=== PATIENT | female | born 1980 | race Caucasian/White ===

== ENCOUNTER 2022-05-13 14:01 | Day surgery (SDC) | payer OTHER ==
[2022-05-13] MEDS ORDERED: Depo-Medrol 40 MG/ML IM ONE (14:02)
[2022-05-13] MEDS ORDERED: Sodium Chloride 0.9(Preservative Free) 10 ML IJ ONE (14:02)
[2022-05-13] MEDS ORDERED: LIDOCAINE HCL 1% 50 MG/5 ML VL PF IJ ONE (14:02)
[2022-05-13] MEDS ORDERED: Lactated Ringers 1,000 ML IV ONE (17:33)
--- NOTE | 2022-05-13 19:22 | XRAY ---
Indication: Right L4-S1 transforaminal OLIVERIO. Intraoperative fluoroscopy provided for 36 seconds. 7 digital spot image submitted for interpretation demonstrates posterior needle tips projecting over the right L4 and L5 nerve roots. Small amount of contrast injected for needle tip placement. Correlate with intraoperative findings/report.
--- NOTE | 2022-05-14 08:33 | XRAY ---
36 seconds of fluoroscopy was used in surgery for a right L4-S1 transforaminal OLIVERIO.
== END 2022-05-13 17:30 | disposition home or self-care (01) ==
LOC: SDC-PAIN 14:01
PROVIDERS: ATTEND Psychiatry & Neurology Pain Medicine
DX: M54.16 Radiculopathy, lumbar region (principal); Z79.899 Other long term (current) drug therapy
CPT/HCPCS: 64483; 64484; 72100; 77003; 81025; J1030; J2001; Q9966

== ENCOUNTER 2022-06-10 13:53 | Day surgery (SDC) | payer OTHER ==
[2022-06-10] MEDS ORDERED: Lactated Ringers 1,000 ML IV ONE (13:54)
[2022-06-10] MEDS ORDERED: Sodium Chloride 0.9(Preservative Free) 10 ML IJ ONE (13:54)
[2022-06-10] MEDS ORDERED: LIDOCAINE HCL 1% 50 MG/5 ML VL PF IJ ONE (13:54)
[2022-06-10] MEDS ORDERED: Depo-Medrol 40 MG/ML IM ONE (13:54)
--- NOTE | 2022-06-10 16:29 | XRAY ---
Indication: Right L4-S1 transforaminal OLIVERIO. Intraoperative fluoroscopy provided for 49 seconds. 8 digital spot image submitted for interpretation demonstrates posterior needle tips projecting over the expected right L4 and L5 nerve roots. Small amount of contrast injected for needle tip placement. Correlate with intraoperative findings/report.
--- NOTE | 2022-06-10 16:42 | XRAY ---
49 seconds fluoroscopy time in surgery for right L4-S1 transforaminal OLIVERIO.
== END 2022-06-10 16:17 | disposition home or self-care (01) ==
LOC: SDC-PAIN 13:53
PROVIDERS: ATTEND Psychiatry & Neurology Pain Medicine
DX: M54.16 Radiculopathy, lumbar region (principal); Z79.899 Other long term (current) drug therapy
CPT/HCPCS: 64483; 64484; 72100; 77003; 81025; J1030; J2001; Q9966

== ENCOUNTER 2022-07-08 13:25 | Day surgery (SDC) | payer OTHER ==
[2022-07-08] MEDS ORDERED: LIDOCAINE HCL 1% 50 MG/5 ML VL PF IJ ONE (13:26)
[2022-07-08] MEDS ORDERED: Decadron 4 MG INJ IV ONE (13:26)
--- NOTE | 2022-07-08 19:13 | XRAY ---
Indication: Right piriformis injection. Intraoperative fluoroscopy provided for 17 seconds. Single digital spot image submitted for interpretation demonstrates posterior needle tip projecting over the expected right piriformis muscle. Small amount of contrast injected for needle tip placement. Correlate with intraoperative findings/report.
--- NOTE | 2022-07-09 09:00 | XRAY ---
17 seconds of fluoroscopy was used in surgery for a right piriformis injection.
== END 2022-07-08 16:40 | disposition home or self-care (01) ==
LOC: SDC-PAIN 13:25
PROVIDERS: ATTEND Psychiatry & Neurology Pain Medicine
DX: M79.18 Myalgia, other site (principal); Z79.899 Other long term (current) drug therapy
CPT/HCPCS: 20552; 72170; 77002; 81025; J1100; J2001; Q9966

== ENCOUNTER 2022-08-05 14:41 | Day surgery (SDC) | payer OTHER ==
[2022-08-05] MEDS ORDERED: Depo-Medrol 40 MG/ML IM ONE (14:42)
[2022-08-05] MEDS ORDERED: BUPIVACAINE 0.5% VIAL IJ ONE (14:42)
[2022-08-05] MEDS ORDERED: LIDOCAINE HCL 1% 50 MG/5 ML VL PF IJ ONE (14:42)
[2022-08-05 15:54] LABS: HCG URINE TEST NEGATIVE (NEGATIVE)
--- NOTE | 2022-08-06 08:41 | XRAY ---
Indication: Right knee injection. Intraoperative fluoroscopy provided for 33 seconds. Single digital spot image submitted for interpretation demonstrates contrast in the right femur intercondylar notch. Correlate with intraoperative findings/report.
--- NOTE | 2022-08-06 09:56 | XRAY ---
33 seconds of fluoroscopy was used in surgery for a right intra-articular knee injection.
== END 2022-08-05 17:50 | disposition home or self-care (01) ==
LOC: SDC-PAIN 14:41
PROVIDERS: ATTEND Psychiatry & Neurology Pain Medicine
DX: M17.11 Unilateral primary osteoarthritis, right knee (principal); Z79.899 Other long term (current) drug therapy
CPT/HCPCS: 20610; 36415; 73560; 77002; 81025; J1030; J2001; Q9966

== ENCOUNTER 2022-09-02 13:53 | Day surgery (SDC) | payer OTHER ==
[2022-09-02] MEDS ORDERED: GELSYN-3 IU ONE (13:54)
[2022-09-02] MEDS ORDERED: BUPIVACAINE 0.5% VIAL IJ ONE (13:54)
[2022-09-02] MEDS ORDERED: LIDOCAINE HCL 1% 50 MG/5 ML VL PF IJ ONE (13:54)
[2022-09-02] MEDS ORDERED: Depo-Medrol 40 MG/ML IM ONE (13:54)
[2022-09-02 15:03] LABS: HCG URINE TEST NEGATIVE (NEGATIVE)
--- NOTE | 2022-09-02 18:35 | XRAY ---
Indication: Right knee injection. Intraoperative fluoroscopy provided for 7 seconds. Single digital spot image submitted for interpretation demonstrates needle tip projecting over the right femur intercondylar notch. Small amount of contrast injected for needle tip placement. Correlate with intraoperative findings/report.
--- NOTE | 2022-09-03 17:15 | XRAY ---
7 seconds of fluoroscopy was used in surgery for a right knee intra-articular injection.
== END 2022-09-02 15:40 | disposition home or self-care (01) ==
LOC: SDC-PAIN 13:53
PROVIDERS: ATTEND Psychiatry & Neurology Pain Medicine
DX: M17.11 Unilateral primary osteoarthritis, right knee (principal); M70.51 Other bursitis of knee, right knee; Z79.899 Other long term (current) drug therapy
CPT/HCPCS: 20610; 36415; 73560; 77002; 81025; J1030; J2001; J7328; Q9966

== ENCOUNTER 2022-09-16 14:58 | Day surgery (SDC) | payer OTHER ==
[2022-09-16] MEDS ORDERED: Depo-Medrol 40 MG/ML IM ONE (14:59)
[2022-09-16] MEDS ORDERED: BUPIVACAINE 0.5% VIAL IJ ONE (14:59)
[2022-09-16] MEDS ORDERED: GELSYN-3 IU ONE (14:59)
[2022-09-16] MEDS ORDERED: LIDOCAINE HCL 1% 50 MG/5 ML VL PF IJ ONE (14:59)
[2022-09-16 15:23] LABS: HCG URINE TEST NEGATIVE (NEGATIVE)
--- NOTE | 2022-09-17 07:17 | XRAY ---
Indication: Right knee injection. Intraoperative fluoroscopy provided for 12 seconds. Single digital spot image submitted for interpretation demonstrates needle tip projecting over the right femur intercondylar notch. Small amount of contrast injected for needle tip placement. Correlate with intraoperative findings/report.
--- NOTE | 2022-09-17 17:31 | XRAY ---
12 seconds of fluoroscopy was used in surgery for a right intra-articular knee injection.
== END 2022-09-16 16:50 | disposition home or self-care (01) ==
LOC: SDC-PAIN 14:58
PROVIDERS: ATTEND Psychiatry & Neurology Pain Medicine
DX: M17.11 Unilateral primary osteoarthritis, right knee (principal); Z79.899 Other long term (current) drug therapy
CPT/HCPCS: 20550; 20610; 73560; 77002; 81025; J1030; J2001; J7328; Q9966

== ENCOUNTER 2022-09-23 14:50 | Day surgery (SDC) | payer OTHER ==
[2022-09-23] MEDS ORDERED: GELSYN-3 IU ONE (14:51)
[2022-09-23] MEDS ORDERED: LIDOCAINE HCL 1% 50 MG/5 ML VL PF IJ ONE (14:51)
[2022-09-23 16:37] LABS: HCG URINE TEST NEGATIVE (NEGATIVE)
--- NOTE | 2022-09-23 22:00 | XRAY ---
Indication: Right knee injection. Intraoperative fluoroscopy provided for 9 seconds. Single digital spot image submitted for interpretation demonstrates needle tip projecting over the right femur intercondylar notch. Small amount of contrast injected for needle tip placement. Correlate with intraoperative findings/report.
== END 2022-09-23 17:40 | disposition home or self-care (01) ==
LOC: SDC-PAIN 14:50
PROVIDERS: ATTEND Psychiatry & Neurology Pain Medicine
DX: M17.11 Unilateral primary osteoarthritis, right knee (principal); Z79.899 Other long term (current) drug therapy
CPT/HCPCS: 20610; 73560; 77002; 81025; J2001; J7328; Q9966

== ENCOUNTER 2022-11-11 14:26 | Day surgery (SDC) | payer OTHER ==
[2022-11-11] MEDS ORDERED: LIDOCAINE HCL 1% 50 MG/5 ML VL PF IJ ONE (14:27)
[2022-11-11] MEDS ORDERED: BUPIVACAINE 0.5% VIAL IJ ONE (14:27)
[2022-11-11] MEDS ORDERED: Depo-Medrol 40 MG/ML IM ONE (14:27)
[2022-11-11 17:38] LABS: HCG URINE TEST NEGATIVE (NEGATIVE)
--- NOTE | 2022-11-11 19:19 | XRAY ---
Indication: Right SI joint and right hip injection. Intraoperative fluoroscopy provided for 21 seconds. 3 digital spot images obtained prone submitted for interpretation demonstrates posterior needle tip projecting over the right SI joint. Second needle tip lateral to right femur neck with small amount of contrast injected for needle tip placement. Correlate with intraoperative findings/report.
--- NOTE | 2022-11-12 09:04 | XRAY ---
21 seconds of fluoroscopy was used in surgery for a right sacroiliac joint and intra-articular hip injection.
== END 2022-11-11 17:07 | disposition home or self-care (01) ==
LOC: SDC-PAIN 14:26
PROVIDERS: ATTEND Psychiatry & Neurology Pain Medicine
DX: M46.1 Sacroiliitis, not elsewhere classified (principal); M16.11 Unilateral primary osteoarthritis, right hip; Z79.899 Other long term (current) drug therapy
CPT/HCPCS: 20610; 27096; 73501; 77002; 81025; J1030; J2001; Q9966; G0260

== ENCOUNTER 2023-10-06 14:52 | Day surgery (SDC) | payer BC ==
[2023-10-06] MEDS ORDERED: Depo-Medrol 40 MG/ML IM ONE (14:53)
[2023-10-06] MEDS ORDERED: BUPIVACAINE 0.5% VIAL IJ ONE (14:53)
[2023-10-06] MEDS ORDERED: LIDOCAINE HCL 1% 50 MG/5 ML VL PF IJ ONE (14:53)
[2023-10-06 15:42] LABS: HCG URINE TEST NEGATIVE (NEGATIVE)
--- NOTE | 2023-10-06 22:19 | XRAY ---
Indication: Right hip and right SI joint injection. Intraoperative fluoroscopy provided for 52 seconds. 5 digital spot images obtained prone submitted for interpretation demonstrates posterior needle tip projecting over the right SI joint. Second needle tip lateral to the right femur neck. Small amount of contrast injected for both needle tip placement. Correlate with intraoperative findings/report.
--- NOTE | 2023-10-07 07:18 | XRAY ---
52 seconds of fluoroscopy was used in surgery for a right intra-articular hip injection and a right sacroiliac joint injection.
== END 2023-10-06 17:30 | disposition home or self-care (01) ==
LOC: SDC-PAIN 14:52
PROVIDERS: ATTEND Psychiatry & Neurology Pain Medicine
DX: M16.11 Unilateral primary osteoarthritis, right hip (principal)
CPT/HCPCS: 20610; 27096; 73501; 77002; 81025; J1010; J2001; Q9966; G0260